=== PATIENT | female | born 1995 | race Caucasian/White ===

== ENCOUNTER → 2016-11-10 | Outpatient (REF) | LOC: WSOH 09:51 | DX: Z11.1 Encounter for screening for respiratory tuberculosis (principal) ==

== ENCOUNTER → 2016-12-14 | Outpatient (REF) | LOC: WSOH 08:49 | DX: Z11.1 Encounter for screening for respiratory tuberculosis (principal) ==

== ENCOUNTER → 2020-05-27 | Outpatient (RCR) | payer OTHER ==
[~2020-05-27] MED LIST: ADVIL200 MG PO; COLACE 100100 MG/CAP PO; NORCO 325 MG-7.1 TAB PO
== END | disposition home or self-care (01) ==
LOC: WSOH
DX: M54.5 Low back pain (principal); Y99.0 Civilian activity done for income or pay

== ENCOUNTER 2020-07-10 13:52 | Outpatient (RCR) | payer OTHER | END 2020-07-11 10:00 | disposition home or self-care (01) | LOC: WSOH 13:52 | DX: M54.5 Low back pain (principal); Z79.899 Other long term (current) drug therapy; Z88.1 Allergy status to other antibiotic agents; Y99.0 Civilian activity done for income or pay ==

== ENCOUNTER 2021-04-30 00:07 | Inpatient (IN) | payer BC ==
[2021-04-30] VITALS (32 sets, daily range): BP systolic 98–137; BP diastolic 45–78; PULSE 65–109; TEMP 97.5–98.7
[~2021-04-30] VITALS: Ht 172.7 cm; Wt 107.3 kg
--- NOTE | 2021-04-30 00:15 | NUR ---
G1LO. 39-0. Ambulatory to LDR 6 with aunt. Clean gown on. EFM and TOCO explained and applied. Pt states she has been kourtney since 2199 last night 04/28 but since 2199 tonight she states they have been more consistent and are 2-3 mins apart. Pt breathing through contractions. Denies leaking of fluids or vaginal bleeding. Plan of care explained. 0030: SVE /-1. Bloody show noted to exam glove.
--- NOTE | 2021-04-30 01:13 | NUR ---
Large amount of emesis at this time. Pt starting to moan through contractions. Pt off monitors to use restroom. Bedding changed. 0122: SVE 5/-1. Pt requesting an epidural. 0131: called and updated on pts status. See physican notification. Admit orders received. 0149: IV started and labs obtained via IV site. LR bolus and Pam infusing without difficutly 0205: TOMASZ Jose at bedside for epidural placement. Pt assisted to edge of bed. Procedure explained by TOMASZ. 0208: Single shot administered by TOMASZ Javier. 0209: Test dose administered by TOMASZ Javier 0216: Pt assisted to wedge left. Plan of care and safety precautions explained to pt who verbalizes her understanding. 0303: Anderson inserted. SVE 8/0. Pericare provided. at nurses station and reviews FHR strip and updated on pt's status. 0327: reviewing FHR strip. At pt's bedside and discusses plan of care. AROM completed at this time. Scant amount of clear fluid noted. SVE 9/90/0. Pericare provided and pt repositioned in bed.
[2021-04-30 02:09] LABS: BASO # 0.1 K/mm3 (0.0-0.2); BASO % 0.2 % (0.0-2.0); EOS % 0.1 % (0-4.0); GRAN # 18.3 K/mm3 (1.4-6.5); GRAN % 82.8 % (42.2-75.2); HEMATOCRIT 37.3 % (37.0-47.0); HEMOGLOBIN 12.5 g/dl (12.5-16.0); LYMPH # 2.4 K/mm3 (1.2-3.4); LYMPH % 10.8 % (20.0-51.0); MEAN CELL VOLUME 86 fl (80.0-100.0); MEAN CORPUSCULAR HEMOGLOBIN 29 pg (27.0-31.0); MEAN CORPUSCULAR HGB CONC 34 g/dl (33.0-37.0); MEAN PLATELET VOLUME 11.4 fl (7.4-10.4); MONO # 1.1 K/mm3 (0.1-0.6); PLATELET COUNT 225 K/mm3 (130-400); RED BLOOD COUNT 4.32 M/mm3 (4.10-5.30); REDCELL DISTRIBUTION WIDTH-CV 12.2 % (11.5-14.5)
--- NOTE | 2021-04-30 05:45 | NUR ---
[id number]: DIFFICULTY TRACING CONTRACTIONS. TOCO ADJUSTED
--- NOTE | 2021-04-30 07:45 | NUR ---
0650 SVE by this RN /+2. [address] Gill called in. 0741 Spontaneous vaginal delivery of viable female infant. bulb suctioned and stimulated. Placed on mother's chest. Cord stops pulsating. Cord clamped by Dr. Gill and cut by aunt of the baby. Kai Evans takes over care of infant. 0747 Spontaneous delivery of placenta. Pitocin bolus started per protocol. 2nd degree perineal laceration. Repaired by Dr. Gill. Fundal massage done. F
--- NOTE | 2021-04-30 07:46 | NUR ---
Fundal massage done. Firm and midline. Scant amt of bleeding noted. Epidural pump turned off. Safety precautions and plan of care discussed with pt. Will continue to monitor.
[2021-05-01 02:35] VITALS: BP 118/78; PULSE 90; TEMP 98.3
[2021-05-01 06:30] VITALS: BP 122/77; PULSE 88; TEMP 98.3
[2021-05-01] MEDS ORDERED: IBU600 MG PO (08:36)
--- NOTE | 2021-05-01 15:30 | NUR ---
DISCHARGE TEACHING COMPLETED. EDUCATED ON FOLLOW UP APPOINTMENT AND PRESCRIPTIONS. QUESTIONS INVITED AND ANSWERED.
== END 2021-05-01 16:10 | disposition home or self-care (01) | DRG 805 ==
LOC: LDRO 00:07 → LDR 01:02 → LDRO 01:36 → LDR 01:37 → OB 01:37
PROVIDERS: Student in an Organized Health Care Education/Training Program; ADMIT Obstetrics & Gynecology
PROC: 10E0XZZ Delivery of Products of Conception, External Approach (ICD-10-PCS; principal; 2021-04-30)
PROC: 0KQM0ZZ Repair Perineum Muscle, Open Approach (ICD-10-PCS; 2021-04-30)
PROC: 10907ZC Drainage of Amniotic Fluid, Therapeutic from Products of Conception, Via Natural or Artificial Opening (ICD-10-PCS; 2021-04-30)
DX: O98.52 Other viral diseases complicating childbirth (principal); U07.1 COVID-19; Z37.0 Single live birth; O99.214 Obesity complicating childbirth; O99.824 Streptococcus B carrier state complicating childbirth; O76 Abnormality in fetal heart rate and rhythm complicating labor and delivery; O70.1 Second degree perineal laceration during delivery; Z73.0 Burn-out; Z28.21 Immunization not carried out because of patient refusal; Z3A.39 39 weeks gestation of pregnancy
CPT/HCPCS: J2540; J2590; J7120